=== PATIENT | female | born 1995 | race Two or more races ===

== ENCOUNTER 2023-06-26 13:00 | Emergency (ER) | payer MEDICAID, OTHER ==
[~2023-06-26] VITALS: Ht 160 cm; Wt 143.5 kg
[2023-06-26 14:22] VITALS: BP 134/85; PULSE 74; TEMP 98.7
[2023-06-26] MEDS: IPRATROPIUM BROM 0.5 MG/2.5ML INH SOL NEB ONE (14:34)
[2023-06-26] MEDS: ALBUTEROL SULF 2.5 MG/0.5ML(0.5%) NEB SOLN NEB ONE (14:34)
[2023-06-26 14:36] VITALS: RESP 18; O2SAT 95
[2023-06-26] MEDS ORDERED: ALBU108A5 IN (14:55)
[2023-06-26] MEDS ORDERED: PRED20TA2 PO (14:55)
== END 2023-06-26 15:02 | disposition home or self-care (01) ==
LOC: ER 13:00
DX: J45.901 Unspecified asthma with (acute) exacerbation (principal)
CPT/HCPCS: 94640; 99283; J7644